=== PATIENT | female | born 1975 | race American Indian/Alaskan Native ===

== ENCOUNTER 2018-10-20 17:46 | Emergency (ER) | payer BC ==
[2018-10-20 18:49] LABS: Basophils # (Auto) 0.1 K/mm3 (0.0-0.1); Eosinophils # (Auto) 0.1 K/mm3 (0.0-0.4); Hematocrit 39.3 % (30.3-42.9); Hemoglobin 12.6 gm/dl (10.1-14.3); Lymphocytes % (Auto) 42.4 % (13.4-35.0); Mean Corpuscular HGB Conc 32 % (30-34); Mean Corpuscular Volume 77 fl (79-97); Monocytes # (Auto) 0.5 K/mm3 (0.0-0.8); Monocytes % (Auto) 7.7 % (0.0-7.3); Platelet Count 292 K/mm3 (140-440); Red Blood Count 5.14 M/mm3 (3.65-5.03); Red Cell Distribution Width 15.4 % (13.2-15.2)
[2018-10-20 19:03] LABS: Alanine Aminotransferase 8 units/L (7-56); BUN/Creatinine Ratio 13; Blood Urea Nitrogen 8 mg/dL (7-17); Calcium 8.5 mg/dL (8.4-10.2); Hemolysis Index 4
--- NOTE | 2018-10-20 19:10 | XRay Report ---
PROCEDURE: XR CHEST ROUTINE 2V TECHNIQUE: 2 view chest HISTORY: cp COMPARISONS: FINDINGS: No focal pulmonary infiltrate identified. No pleural fluid collection seen. Pulmonary vasculature is unremarkable. IMPRESSION: Negative two-view chest. This document is electronically signed by Nawaf Morejon MD., Oct 20 2018 07:08:42 PM ET
--- NOTE | 2018-10-20 19:19 | Emergency Department Report ---
Blank Doc - Documentation Documentation: 43 y/o female comes in for cp time 2 weeks and headache.
[2018-10-20] MEDS ORDERED: ZOFRAN IV ONE (20:03)
[2018-10-20] MEDS ORDERED: NACL 0.9% 1000 ML 1,000 ML IV ONE (20:03)
[2018-10-20] MEDS ORDERED: PEPCID IV ONE (20:03)
[2018-10-20] MEDS ORDERED: TORADOL IV ONE (20:03)
--- NOTE | 2018-10-20 20:29 | Emergency Department Report ---
ED Headache HPI - General Chief Complaint: Headache Stated Complaint: MIGRAINES/CHEST PAIN/STOMACH PAIN Time Seen by Provider: 10/20/18 19:52 - History of Present Illness Initial Comments: Immunization is a 43-year-old [place]ian female who is presenting with a headache. Patient has no history of migraines. Patient states that the headache is present for approximately 3 days and is mostly in the bilateral frontal area and temples with the worst area being the right. Patient states she has some light sensitivity but no blurred vision. Patient states she has some nausea and epigastric discomfort but no vomiting. Patient denies any cough cold congestion fevers chills or neck stiffness at this time. Quality: constant Recent Head Trauma: no recent headache/trauma Allergies/Adverse Reactions: Allergies No Known Allergies Allergy (Unverified 01/06/14 10:01) Home Medications: Ambulatory Orders Aspirin [Aspirin BABY CHEW TAB] 81 mg PO QDAY #30 tab.chew 01/15/16 Meloxicam [Mobic] 7.5 mg PO Q12H #60 tablet 01/15/16 traMADol [Ultram 50 MG tab] 50 mg PO Q6HR PRN #30 tablet 01/15/16 Ketorolac [Toradol] 10 mg PO Q6H PRN #12 tablet 10/20/18 Ondansetron [Zofran Odt] 4 mg PO Q8HR #10 tab.rapdis 10/20/18 ED Review of Systems ROS: Stated complaint: MIGRAINES/CHEST PAIN/STOMACH PAIN Other details as noted in HPI Comment: All other systems reviewed and negative ED Past Medical Hx - Past Medical History Previous Medical History?: Yes Additional medical history: Thyroid problem - Surgical History Past Surgical History?: Yes Additional Surgical History: Partial hyst, Tubal ligation. ovarian cyst removed - Social History Smoking Status: Current Every Day Smoker Substance Use Type: None - Medications Home Medications: Home Medications Medication Instructions Recorded Confirmed Last Taken Type Aspirin [Aspirin BABY CHEW TAB] 81 mg PO QDAY #30 tab.chew 01/15/16 Unknown Rx Meloxicam [Mobic] 7.5 mg PO Q12H #60 tablet 01/15/16 Unknown Rx traMADol [Ultram 50 MG tab] 50 mg PO Q6HR PRN #30 tablet 01/15/16 Unknown Rx Ketorolac [Toradol] 10 mg PO Q6H PRN #12 tablet 10/20/18 Unknown Rx Ondansetron [Zofran Odt] 4 mg PO Q8HR #10 tab.rapdis 10/20/18 Unknown Rx ED Physical Exam - General Limitations: No Limitations General appearance: alert, in no apparent distress - Head Head exam: Present: atraumatic, normocephalic - Eye Eye exam: Present: normal appearance, PERRL, EOMI - ENT ENT exam: Present: mucous membranes moist - Neck Neck exam: Present: normal inspection - Respiratory Respiratory exam: Present: normal lung sounds bilaterally. Absent: respiratory distress, wheezes, rales, rhonchi, stridor - Cardiovascular Cardiovascular Exam: Present: regular rate, normal rhythm. Absent: systolic murmur, diastolic murmur, rubs, gallop - GI/Abdominal GI/Abdominal exam: Present: soft, normal bowel sounds. Absent: distended, tenderness, guarding, rebound, rigid - Extremities Exam Extremities exam: Present: normal inspection - Back Exam Back exam: Present: normal inspection - Neurological Exam Neurological exam: Present: alert, oriented X3, CN II-XII intact, normal gait - Psychiatric Psychiatric exam: Present: normal affect, normal mood - Skin Skin exam: Present: warm, dry, intact, normal color. Absent: rash ED Course Vital Signs 10/20/18 17:58 Temperature 98.2 F Pulse Rate 60 Respiratory 18 Rate Blood Pressure 119/78 O2 Sat by Pulse 100 Oximetry - Reevaluation(s) Reevaluation #1: 10/20/18 22:05 Patient was given IV hydration medications for symptomatic relief in her headache has resolved. CT of the head appears within normal limits. Patient be referred to neurology for further management and evaluation. ED Medical Decision Making - Lab Data Result diagrams: 10/20/18 18:32 10/20/18 18:32 - Radiology Data [facility] [address] [place] [address] Cat Scan Report Signed Patient: BRIGID HUNTER MR#: [id number] : 1975 Acct:[id number] Age/Sex: 43 / F ADM Date: 10/20/18 Loc: ED Attending Dr: Ordering Physician: TALHA CASTRO MD Date of Service: 10/20/18 Procedure(s): CT head/brain wo con Accession Number(s): [id number] cc: TALHA CASTRO MD PROCEDURE: CT head without contrast. TECHNIQUE: Axial scans were done through the brain without intravenous contrast. HISTORY: New onset headache. COMPARISONS: None. FINDINGS: The ventricles are normal in size. The medel matter and white matter appear normal. There are no mass lesions. There is no intracranial hemorrhage. The calvarium appears intact. The mastoid air cells and visualized paranasal sinuses are well aerated. IMPRESSION: Normal study. This document is electronically signed by Nick Paula MD., Oct 20 2018 09:21:12 PM ET Transcribed By: ЮЛИЯ Dictated By: NICK PAULA MD Electronically Authenticated By: NICK PAULA MD Signed Date/Time: 10/20/182122 DD/ 51 TD/TT: 10/20/182051 Critical care attestation.: If time is entered above; I have spent that time in minutes in the direct care of this critically ill patient, excluding procedure time. ED Disposition Clinical Impression: Acute headache Qualifiers: Headache type: unspecified Intractability: not intractable Qualified Code(s): R51 - Headache Disposition: DC-01 TO HOME OR SELFCARE Is pt being admited?: No Does the pt Need Aspirin: No Condition: Stable Instructions: Acute Headache (ED) Referrals: NOAH WEINSTEIN MD [Primary Care Provider] - 3-5 Days CAROLYN OSPINA MD [Staff Physician] - 3-5 Days Time of Disposition: 22:07
--- NOTE | 2018-10-20 21:23 | Cat Scan Report ---
PROCEDURE: CT head without contrast. TECHNIQUE: Axial scans were done through the brain without intravenous contrast. HISTORY: New onset headache. COMPARISONS: None. FINDINGS: The ventricles are normal in size. The medel matter and white matter appear normal. There are no mass lesions. There is no intracranial hemorrhage. The calvarium appears intact. The mastoid air cells and visualized paranasal sinuses are well aerated. IMPRESSION: Normal study. This document is electronically signed by Nick Morales MD., Oct 20 2018 09:21:12 PM ET
[2018-10-20 22:12] VITALS: BP 135/87
== END 2018-10-20 23:08 | disposition home or self-care (01) ==
LOC: ED 17:46
DX: R51 Headache (principal); F17.200 Nicotine dependence, unspecified, uncomplicated; Z79.82 Long term (current) use of aspirin; Z98.51 Tubal ligation status; Z90.711 Acquired absence of uterus with remaining cervical stump
CPT/HCPCS: 36415; 70450; 71046; 80053; 85025; 96374; 96375; 99284; J1885; J2405; J7030

== ENCOUNTER 2020-01-17 14:12 | Emergency (ER) | payer BC | END 2020-01-17 15:17 | disposition left against medical advice (07) | LOC: ED 14:12 | DX: R07.89 Other chest pain (principal); Z53.21 Procedure and treatment not carried out due to patient leaving prior to being seen by health care provider ==

== ENCOUNTER 2021-12-26 15:40 | Emergency (ER) | payer BC ==
--- NOTE | 2021-12-26 17:46 | XRay Report ---
CHEST 2 VIEWS INDICATION / CLINICAL INFORMATION: SOB. COMPARISON: 10/20/2018 FINDINGS: SUPPORT DEVICES: None. HEART / MEDIASTINUM: No significant abnormality. LUNGS / PLEURA: No significant pulmonary or pleural abnormality. No pneumothorax. ADDITIONAL FINDINGS: No significant additional findings. IMPRESSION: 1. No acute findings. Signer Name: Scout Kaiser MD Signed: 12/26/2021 5:41 PM Workstation Name: [id number]
--- NOTE | 2021-12-26 22:35 | Emergency Department Report ---
- General Chief Complaint: Upper Respiratory Infection Stated Complaint: PINK EYE, HIGH FEVER Source: patient Mode of arrival: Ambulatory Limitations: No Limitations - History of Present Illness Initial Comments: Patient is a 46-year-old -[place] female with a history of hypothyroidism who presents to the ED with complaint of persistent nasal and sinus congestion, frontal sinus pressure, persistent dry cough, diffuse body aches and pains, loss of sense of taste and smell, and nausea for the last 10 days. Patient states that she tested positive for COVID-19 viral infection 10 days ago and when she got retested 3 days ago she still came up positive for COVID-19. Patient states that the symptoms have been persistent despite taking uieu-[id number]-xfcejbl remedies. Patient also complains of bilateral eye pain with purulent discharge for the last 3 days. Patient denies vision loss, dizziness, syncope, vomiting or diarrhea, abdominal pain, chest pain, shortness of breath, sore throat, neck pain, headache, dysuria or urinary frequency and urgency, fever and chills. MD Complaint: cough, rhinorrhea, nasal congestion, sinus pain, other (bilateral eye pain with discharge) -: days(s) (10) Severity: moderate Severity scale (0 -10): 6 Quality: sharp, aching Consistency: constant Improves With: nothing Worsens With: nothing Context: other (Recently diagnosed with COVID-19 viral infection 10 days ago) Associated Symptoms: denies other symptoms, rhinorrhea, nasal congestion, cough, nausea. denies: myalgias, headache, sore throat, stiff neck, chest pain, shortness of breath, abdominal pain, vomiting, diarrhea, dysuria, rash, confusion, right sweats, weight loss, epistaxis, hoarseness, ear pain Treatments Prior to Arrival: "cold medicine" - Related Data Previous Rx's Medication Instructions Recorded Last Taken Type Aspirin [Aspirin BABY CHEW TAB] 81 mg PO QDAY #30 tab.chew 01/15/16 Unknown Rx Meloxicam [Mobic] 7.5 mg PO Q12H #60 tablet 01/15/16 Unknown Rx traMADoL [Ultram 50 MG tab] 50 mg PO Q6HR PRN #30 tablet 01/15/16 Unknown Rx Ketorolac [Toradol] 10 mg PO Q6H PRN #12 tablet 10/20/18 Unknown Rx Ondansetron [Zofran Odt] 4 mg PO Q8HR #10 tab.rapdis 10/20/18 Unknown Rx Acetaminophen [Tylenol] 500 mg PO Q6HR PRN #40 tablet 12/26/21 Unknown Rx Benzonatate [Tessalon Perles] 100 mg PO Q8HR #30 cap 12/26/21 Unknown Rx Cetirizine HCl [Zyrtec 10mg tab] 10 mg PO DAILY #30 tab 12/26/21 Unknown Rx Gentamicin 0.3% Ophth Soln 1 drops OP Q4H #5 ml 12/26/21 Unknown Rx Ondansetron [Zofran Odt] 4 mg PO Q8HR PRN #15 tab.rapdis 12/26/21 Unknown Rx Zinc [Zinc 50mg TAB] 50 mg PO DAILY #30 tab 12/26/21 Unknown Rx Allergies Allergy/AdvReac Type Severity Reaction Status Date / Time No Known Allergies Allergy Unverified 01/06/14 10:01 ED Review of Systems ROS: Stated complaint: PINK EYE, HIGH FEVER Other details as noted in HPI Constitutional: denies: chills, fever Eyes: eye pain (Bilateral), eye discharge (Bilateral). denies: vision change ENT: congestion, other (Sinus pressure). denies: ear pain, throat pain Respiratory: cough. denies: shortness of breath, wheezing Cardiovascular: denies: chest pain, palpitations Endocrine: no symptoms reported Gastrointestinal: denies: abdominal pain, nausea, vomiting, diarrhea Genitourinary: denies: urgency, dysuria, discharge Musculoskeletal: arthralgia, myalgia. denies: back pain, joint swelling Skin: denies: rash, lesions Neurological: headache. denies: weakness, paresthesias Psychiatric: denies: anxiety, depression Hematological/Lymphatic: denies: easy bleeding, easy bruising ED Past Medical Hx - Past Medical History Additional medical history: Thyroid problem - Surgical History Additional Surgical History: Partial hyst, Tubal ligation. ovarian cyst removed - Social History Smoking Status: Current Every Day Smoker Substance Use Type: None - Medications Home Medications: Home Medications Medication Instructions Recorded Confirmed Last Taken Type Aspirin [Aspirin BABY CHEW TAB] 81 mg PO QDAY #30 tab.chew 01/15/16 Unknown Rx Meloxicam [Mobic] 7.5 mg PO Q12H #60 tablet 01/15/16 Unknown Rx traMADoL [Ultram 50 MG tab] 50 mg PO Q6HR PRN #30 tablet 01/15/16 Unknown Rx Ketorolac [Toradol] 10 mg PO Q6H PRN #12 tablet 10/20/18 Unknown Rx Ondansetron [Zofran Odt] 4 mg PO Q8HR #10 tab.rapdis 10/20/18 Unknown Rx Acetaminophen [Tylenol] 500 mg PO Q6HR PRN #40 tablet 12/26/21 Unknown Rx Benzonatate [Tessalon Perles] 100 mg PO Q8HR #30 cap 12/26/21 Unknown Rx Cetirizine HCl [Zyrtec 10mg tab] 10 mg PO DAILY #30 tab 12/26/21 Unknown Rx Gentamicin 0.3% Ophth Soln 1 drops OP Q4H #5 ml 12/26/21 Unknown Rx Ondansetron [Zofran Odt] 4 mg PO Q8HR PRN #15 tab.rapdis 12/26/21 Unknown Rx Zinc [Zinc 50mg TAB] 50 mg PO DAILY #30 tab 12/26/21 Unknown Rx ED Physical Exam - General Limitations: No Limitations General appearance: alert, in no apparent distress - Head Head exam: Present: atraumatic, normocephalic, normal inspection - Eye Eye exam: Present: normal appearance, PERRL, EOMI, other (Mild erythematous bilateral conjunctiva with purulent discharge) Pupils: Present: normal accommodation - ENT ENT exam: Present: normal orophraynx, mucous membranes moist, TM's normal bilaterally, normal external ear exam, other (Grossly congested nasal passages) - Neck Neck exam: Present: normal inspection, full ROM - Respiratory Respiratory exam: Present: normal lung sounds bilaterally. Absent: respiratory distress, wheezes, rales, rhonchi, stridor, chest wall tenderness, accessory muscle use, decreased breath sounds, prolonged expiratory - Cardiovascular Cardiovascular Exam: Present: regular rate, normal rhythm, normal heart sounds. Absent: systolic murmur, diastolic murmur, rubs, gallop - GI/Abdominal GI/Abdominal exam: Present: soft, normal bowel sounds. Absent: tenderness, guarding, hyperactive bowel sounds, hypoactive bowel sounds, organomegaly - Extremities Exam Extremities exam: Present: normal inspection, full ROM, normal capillary refill. Absent: tenderness - Back Exam Back exam: Present: normal inspection, full ROM. Absent: tenderness, CVA tenderness (R), CVA tenderness (L), muscle spasm, paraspinal tenderness, vertebral tenderness - Neurological Exam Neurological exam: Present: alert, oriented X3, CN II-XII intact, normal gait, reflexes normal - Psychiatric Psychiatric exam: Present: normal affect, normal mood - Skin Skin exam: Present: warm, dry, intact, normal color. Absent: rash ED Course Vital Signs 12/26/21 17:05 Temperature 98.4 F Pulse Rate 98 H Respiratory 16 Rate Blood Pressure 126/93 [Left] O2 Sat by Pulse 95 Oximetry ED Medical Decision Making - Radiology Data Radiology results: report reviewed, image reviewed [facility] [address] [place] [address] XRay Report Signed Patient: BRIGID HUNTER MR#: [id number] : 1975 Acct:[id number] Age/Sex: 46 / F ADM Date: 12/26/21 Loc: ED Attending Dr: Ordering Physician: ALEJANDRO DIAZ MD Date of Service: 12/26/21 Procedure(s): XR chest routine 2V Accession Number(s): [id number] cc: ED MD JOE Fluoro Time In Minutes: CHEST 2 VIEWS INDICATION / CLINICAL INFORMATION: SOB. COMPARISON: 10/20/2018 FINDINGS: SUPPORT DEVICES: None. HEART / MEDIASTINUM: No significant abnormality. LUNGS / PLEURA: No significant pulmonary or pleural abnormality. No pneumothorax. ADDITIONAL FINDINGS: No significant additional findings. IMPRESSION: 1. No acute findings. Signer Name: Scout Kaiser MD Signed: 12/26/2021 5:41 PM Workstation Name: [id number] Transcribed By: CW Dictated By: MARY KAISER MD Electronically Authenticated By: MARY KAISER MD Signed Date/Time: 12/26/211740 DD/ 40 TD/TT: - Medical Decision Making This is a 46-year-old -[place] female with a history of hypothyroidism who presents to the ED with complaint of persistent nasal and sinus congestion, frontal sinus pressure, persistent dry cough, diffuse body aches and pains, loss of sense of taste and smell, and nausea for the last 10 days. Patient states that she tested positive for COVID-19 viral infection 10 days ago and when she got retested 3 days ago she still came up positive for COVID-19. Patient states that the symptoms have been persistent despite taking bcyi-fvg-pupcrwc remedies. Patient also complains of bilateral eye pain with purulent discharge for the last 3 days. In the ED, patient is alert and oriented x3 and is not in any distress. Patient is hemodynamically stable with oxygen saturation of 95% on room air. Chest x-ray showed no acute cardiopulmonary abnormalities or pneumonitis. Based on the history and physical exam findings, the patient was discharged home on medications and advised to follow-up with her primary care physician in 7 to 10 days for reevaluation. Patient was advised to continue self quarantine while taking medications. Patient is advised to return to the ED immediately if symptoms get worse. - Differential Diagnosis COVID-19; conjunctivitis; bronchitis; pneumonia; sinusitis; URI Critical care attestation.: If time is entered above; I have spent that time in minutes in the direct care of this critically ill patient, excluding procedure time. ED Disposition Clinical Impression: Upper respiratory tract infection due to COVID-19 virus, Acute bronchitis due to COVID-19 virus, Bacterial conjunctivitis of both eyes Disposition: 01 HOME / SELF CARE / HOMELESS Is pt being admited?: No Does the pt Need Aspirin: No Condition: Stable Instructions: Acute Bronchitis (ED), Hand Washing, [id number], Upper Respiratory Infection, Adult, Vije-nm-Yazg, Acute Bronchitis, Adult, Arja-gn-Bakx, COVID-19: How to Protect Yourself and Others - CDC, Prevent the Spread of COVID-19 if You Are Sick - CDC, Bacterial Conjunctivitis, Adult, Isll-tr-Akri, Cough, Adult, Nspj-bz-Omzj, COVID-19 Frequently Asked Questions Additional Instructions: Chest x-ray showed no acute cardiopulmonary abnormalities or pneumonitis. Therefore take medications as advised, drink plenty of fluids, self quarantine for additional 5 days and follow-up with your primary care physician in 7 to 10 days for reevaluation. Return to the ED immediately if symptoms get worse. Prescriptions: Acetaminophen [Tylenol] 500 mg PO Q6HR PRN #40 tablet PRN Reason: pain or fever Gentamicin 0.3% Ophth Soln 1 drops OP Q4H #5 ml Benzonatate [Tessalon Perles] 100 mg PO Q8HR #30 cap Zinc [Zinc 50mg TAB] 50 mg PO DAILY #30 tab Ondansetron [Zofran Odt] 4 mg PO Q8HR PRN #15 tab.rapdis PRN Reason: Nausea Cetirizine HCl [Zyrtec 10mg tab] 10 mg PO DAILY #30 tab Referrals: RICHMOND VEGAS [Other] - 3-5 Days Forms: Work/School Release Form(ED) Time of Disposition: 22:36 Print Language: ITALIAN
[2021-12-26 23:11] VITALS: BP 127/91
== END 2021-12-26 23:11 | disposition home or self-care (01) ==
LOC: ED 15:40
DX: J06.9 Acute upper respiratory infection, unspecified (principal); U07.1 COVID-19; J20.8 Acute bronchitis due to other specified organisms; H10.89 Other conjunctivitis; F17.200 Nicotine dependence, unspecified, uncomplicated; Z79.899 Other long term (current) drug therapy
CPT/HCPCS: 71046; 99283